=== PATIENT | female | born 1990 | race Caucasian/White ===

== ENCOUNTER 2016-10-21 10:04 | Emergency (ER) | payer MEDICAID ==
[2016-10-21 10:08] VITALS: BP 143/83; PULSE 77; RESP 18; TEMP 98.4; O2SAT 99
--- NOTE | 2016-10-21 10:35 | C.PDOC ---
History Of Present Illness 26 year old female presents to the emergency department with complaints of itching and burning rash beginning 3 days ago on Saturday. PT went to [facility] yesterday and was prescribed hydrocortisone, Benadryl and Prednisone with no relief. Pt notes that she finished a 6 day course of Avelox on Saturday which she believes started the rash. Patient denies throat swelling, shortness of breath, lip or tongue swelling, or coughing. No h/o similar episodes. Time Seen by Provider: 10/21/16 10:11 Chief Complaint (Nursing): Abnormal Skin Integrity History Per: Patient History/Exam Limitations: no limitations Onset/Duration Of Symptoms: Days (3 days ) Current Symptoms Are (Timing): Still Present Quality Of Symptoms: Itching, Other (burning) Recent travel outside of the [place]: No Past Medical History Reviewed: Historical Data, Nursing Documentation, Vital Signs Vital Signs: Last Vital Signs Temp 98.4 F 10/21/16 10:07 Pulse 77 10/21/16 10:07 Resp 18 10/21/16 10:07 BP 143/83 10/21/16 10:07 Pulse Ox 99 10/21/16 11:48 Family History: States: Unknown Family Hx - Social History Hx Tobacco Use: Yes Hx Alcohol Use: No Hx Substance Use: No - Immunization History Hx Tetanus Toxoid Vaccination: No Hx Influenza Vaccination: Yes Hx Pneumococcal Vaccination: Yes Review Of Systems Constitutional: Negative for: Fever, Chills ENT: Negative for: Ear Pain Cardiovascular: Negative for: Chest Pain, Palpitations Respiratory: Negative for: Cough, Shortness of Breath Gastrointestinal: Negative for: Nausea, Vomiting, Abdominal Pain, Diarrhea Skin: Positive for: Rash (burning and itching rash ) Physical Exam - Physical Exam Appears: Non-toxic, No Acute Distress Skin: Warm, Dry, Other (Well demarcated erythematus maculopapular rash to bilateral antecubital, midabdomen, and left side of neck) Head: Atraumatic, Normacephalic Eye(s): bilateral: Normal Inspection, PERRL, EOMI Ear(s): Bilateral: Normal Oral Mucosa: Moist Tongue: No Swelling Lips: Normal Appearing, No Swelling Throat: Normal, No Erythema, No Exudate Neck: Normal ROM, Supple Chest: Symmetrical, No Deformity Cardiovascular: Rhythm Regular Respiratory: Normal Breath Sounds, No Rhonchi, No Wheezing Gastrointestinal/Abdominal: Soft, No Tenderness, No Distention, No Guarding, No Rebound Neurological/Psych: Oriented x3, Normal Speech, Normal Cognition ED Course And Treatment O2 Sat by Pulse Oximetry: 99 (room air ) Progress Note: Pt was seen and evaluated by martha Murillo plan and treatment. Patient was instructed to follow up with physician in 1-2 days for further evaluation. Disposition - Disposition Referrals: Adolfo Walls MD [Staff Provider] - Disposition: HOME/ ROUTINE Disposition Time: 10:57 Condition: STABLE Additional Instructions: Take the medication as prescribed by Umberto. Follow up with spare hand in 1-2 days. Return to ER if symptoms persist or worsen. Prescriptions: Clotrimazole/Betamethasone [Lotrisone] 15 gm EXT BID 10 Days Instructions: Acute Rash (ED) Forms: [facility] (Mosotho) - Clinical Impression Clinical Impression: Rash - Scribe Statement The provider has reviewed the documentation as recorded by the Emmyibsvetlana Hitchcock All medical record entries made by the Emmyibsvetlana were at my direction and personally dictated by me. I have reviewed the chart and agree that the record accurately reflects my personal performance of the history, physical exam, medical decision making, and the department course for this patient. I have also personally directed, reviewed, and agree with the discharge instructions and disposition.
== END 2016-10-21 11:21 | disposition home or self-care (01) ==
LOC: C.ER 10:04
DX: R21 Rash and other nonspecific skin eruption (principal)

== ENCOUNTER 2017-05-21 09:24 | Emergency (ER) | payer MEDICAID ==
--- NOTE | 2017-05-21 10:15 | C.PDOC ---
History Of Present Illness <Daquan Fountain M - Last Filed: 05/21/17 11:55> <Alexsander Moreno - Last Filed: 05/21/17 14:17> This is a 27 year old female with no known pmhx presenting with 6 day hx of nausea and vomiting (multiple bouts each day) followed by a 3 day hx of diarrhea. Both emesis and bowel movements are non-blood. She states that symptoms started after she had a fresh pressed juice at [employer] 6 days ago. She has only been able to hold down water and clear liquids since onset of symptoms. She tried to take alkaseltzer as well as pepto bismol to help remedy this at home but these did not help. Her onset of diarrhea started with watery bowel movements but they have since become more formed however she continues to have multiple bowel movements each day; she states she has had 4 bowel movements already this morning. She denies any fevers, chills, recent illness, recent abx use. She does have abdominal pain which she localizes to the epigastric region. Her last bout of vomiting was this morning. The patient's was also having her period during this time, starting 05/18/17 and ending yesterday. pmhx: none pshx: c section meds: none allergies: peanuts Sochx: no alcohol/tobacco/drugs famhx: noncontributory (Alexsander Moreno) <Daquan Fountain M - Last Filed: 05/21/17 11:55> <Alexsander Moreno - Last Filed: 05/21/17 14:17> Time Seen by Provider: 05/21/17 10:01 Chief Complaint (Nursing): GI Problem Past Medical History - Medical History PMH: No Chronic Diseases Surgical History: Family History: States: Unknown Family Hx - Social History Hx Tobacco Use: No Hx Alcohol Use: No Hx Substance Use: No - Immunization History Hx Tetanus Toxoid Vaccination: No Hx Influenza Vaccination: Yes Hx Pneumococcal Vaccination: Yes <Alexsander Moreno - Last Filed: 05/21/17 14:17> Vital Signs: Last Vital Signs Temp 97.8 F 05/21/17 12:27 Pulse 60 05/21/17 12:27 Resp 17 05/21/17 12:27 BP 108/65 05/21/17 12:27 Pulse Ox 98 05/21/17 12:27 Review Of Systems Constitutional: Negative for: Fever, Chills Cardiovascular: Negative for: Chest Pain, Palpitations Respiratory: Negative for: Cough, Shortness of Breath Gastrointestinal: Positive for: Nausea, Vomiting, Abdominal Pain, Diarrhea Genitourinary: Negative for: Dysuria, Pelvic Pain Skin: Negative for: Rash <Alexsander Moreno - Last Filed: 05/21/17 14:17> Physical Exam - Physical Exam Appears: No Acute Distress Skin: Warm, Dry Head: Atraumatic, Normacephalic Cardiovascular: Rhythm Regular Respiratory: Normal Breath Sounds, No Accessory Muscle Use, No Wheezing Gastrointestinal/Abdominal: Soft, Tenderness (epigastric) Extremity: No Tenderness, No Pedal Edema <Alexsander Moreno - Last Filed: 05/21/17 14:17> ED Course And Treatment - Laboratory Results Result Diagrams: 05/21/17 10:58 05/21/17 10:58 <Daquan Fountain M - Last Filed: 05/21/17 11:55> - Laboratory Results Result Diagrams: 05/21/17 10:58 05/21/17 10:58 O2 Sat by Pulse Oximetry: 100 <Alexsander Moreno - Last Filed: 05/21/17 14:17> Medical Decision Making <Daquan Fountain - Last Filed: 05/21/17 11:55> <Alexsander Moreno - Last Filed: 05/21/17 14:17> Medical Decision Making: Patient improved with Zofran 4mg IV x1. No further nausea and vomiting. Pepcid was administered along with 1L bolus of NS and toradol for pain control. Obstructive series completed and did not show any obstruction. Labs were reviewed without pertinent findings. POC test was negative. She was instructed to follow up with her PMD within 1-2 days. Case discussed with Dr. Butt (Alexsander Moreno) Disposition Counseled Patient/Family Regarding: Studies Performed, Diagnosis, Need For Followup, Rx Given - Disposition Disposition Time: 11:56 <Daquan Fountain - Last Filed: 05/21/17 11:55> Discussed With : Daquan Fountain <Alexsander Moreno Last Filed: 05/21/17 14:17> - Disposition Referrals: [facility] [Outside] Disposition: HOME/ ROUTINE Condition: IMPROVED Additional Instructions: follow up with your doctor in 2 days call to make an appointment take medications as prescribed return to ER if symptoms worsens or progress Prescriptions: Dicyclomine [Bentyl] 20 mg PO TID PRN #10 tab PRN Reason: Dyspepsia Famotidine [Pepcid] 20 mg PO BID #20 tab Instructions: Nausea and Vomiting, Adult (DC) Forms: General Discharge Instructions, [facility] (Welsh), Work Excuse - Clinical Impression Clinical Impression: Abdominal pain, Nausea and vomiting in adult
[2017-05-21] MEDS ORDERED: Sodium Chloride 0.9% 1,000 ML IV ONE (10:24)
[2017-05-21] MEDS ORDERED: Sodium Chloride 0.9% 1,000 ML ONE (10:46)
[2017-05-21 10:49] LABS: BASO % 0.5 % (0.0-2.0); EOS # 0.1 K/uL (0.0-0.7); EOS % 1.1 % (0.0-4.0); LYMPH # 2.4 K/uL (1.0-4.3); LYMPH % 34.7 % (20.0-40.0); MEAN CELL VOLUME 90.8 fL (81.0-99.0); MEAN CORPUSCULAR HEMOGLOBIN 31.2 pg (27.0-31.0); MEAN CORPUSCULAR HGB CONC 34.4 g/dL (33.0-37.0); MONO # 0.4 K/uL (0.0-0.8); MONO % 6.3 % (0.0-10.0); NEUT # 3.9 K/uL (1.8-7.0); NEUT % 57.4 % (50.0-75.0); RBC 4.16 Mil/uL (3.80-5.20); RED CELL DISTRIBUTION WIDTH 13.5 % (11.5-14.5); WHITE BLOOD COUNT 6.8 K/uL (4.8-10.8)
[2017-05-21 11:05] LABS: SQUAMOUS EPITHIAL 15 /hpf (0-5); URINE BACTERIA RARE (<OCC); URINE BILIRUBIN NEGATIVE (NEGATIVE); URINE BLOOD 3+ (NEGATIVE); URINE CLARITY Hazy (Clear); URINE COLOR Yellow (YELLOW); URINE GLUCOSE (UA) NORMAL (Normal); URINE LEUKOCYTE ESTERASE TRACE Leu/uL (Negative); URINE NITRATE NEGATIVE (NEGATIVE); URINE PROTEIN NEGATIVE (NEGATIVE); URINE UROBILINOGEN NORMAL mg/dL (0.2-1.0)
--- NOTE | 2017-05-21 11:15 | RAD ---
PROCEDURE: Radiographs of the chest and abdomen (obstructive series) HISTORY: nausea/vomiting COMPARISON: None available. TECHNIQUE: AP radiograph of the chest, with upright and supine radiographs of the abdomen. FINDINGS: CHEST: The cardiomediastinal silhouette appears within normal limits. No focal consolidation. No pleural effusion. No pneumothorax. Please note that chest x-ray has limited sensitivity for the detection of pulmonary masses. ABDOMEN AND PELVIS: Nonobstructive bowel gas pattern. No definite free air. No acute osseous abnormality is detected. IMPRESSION: Unremarkable radiographs of chest and abdomen. No evidence of mechanical bowel obstruction.
[2017-05-21 11:16] LABS: ALB/GLOB RATIO 1.2 (1.0-2.1); ALT/SGPT 20 U/L (9-52); AST/SGOT 27 U/L (14-36); BLOOD UREA NITROGEN 10 mg/dL (7-17); GFR AFRICAN-AMERICAN > 60; GFR NON-AFRICAN AMERICAN > 60; LIPASE 136 U/L (23-300)
[2017-05-21 12:28] VITALS: BP 108/65; PULSE 60; RESP 17; TEMP 97.8
[2017-05-21 14:17] VITALS: O2SAT 100
== END 2017-05-21 12:32 | disposition home or self-care (01) ==
LOC: C.ER 09:24
DX: R11.2 Nausea with vomiting, unspecified (principal); R10.13 Epigastric pain
CPT/HCPCS: 74022; 80053; 81001; 83690; 85025; 96361; 96374; 96375; 99284; J1885; J2405; J7040